=== PATIENT | male | born 1985 | race Two or more races ===

== ENCOUNTER 2022-03-18 07:37 | Inpatient (IN) | payer MEDICAID, OTHER ==
[~2022-03-18] VITALS: Ht 188 cm; Wt 109.5 kg
[2022-03-18] MEDS ORDERED: ACETAMINOPHEN 500 MG TAB PO ONE (08:00)
[2022-03-18 11:40] LABS: Calcium 8.9 mg/dL (8.5-10.1); Potassium 3.4 mmol/L (3.5-5.1)
[2022-03-18 11:44] LABS: BUN/Creatinine Ratio 12.9; Bilirubin, Total 2.1 mg/dL (0.2-1.0); Total Protein 8.6 g/dL (6.4-8.2)
[2022-03-18 11:45] LABS: Eosinophils # (auto) 0 10 ^3/uL (0-0.8); Hemoglobin 16.7 g/dL (13.5-17.5)
[2022-03-18 11:47] LABS: Urine Bacteria FEW /hpf (None Seen); Urine Blood Negative /uL (Negative); Urine Mucus FEW (None Seen); Urine WBC 1 /hpf (0 - 3)
[2022-03-18 11:49] LABS: Basophils # (auto) 0.1 10 ^3/uL (0-0.2); Basophils % (auto) 0.5 % (0.0-2.0); Hematocrit 49.8 % (41.0-53.0); Lymphocytes # (auto) 0.7 10 ^3/uL (0.4-5.4); Lymphocytes % (auto) 5.7 % (10.0-50.0); Mean Corpuscular Hemoglobin 27.8 pg (28.0-32.0); Mean Corpuscular Hgb Conc. 33.6 g/dL (32.0-36.0); Mean Corpuscular Volume 82.7 fL (80.0-100.0); Monocytes # (auto) 0.5 10 ^3/uL (0-1.3); Monocytes % (auto) 3.9 % (0.0-12.0); Neutrophils # (auto) 11.4 10 ^3/uL (1.6-8.6); Neutrophils % (auto) 89.9 % (37.0-80.0); Nucleated Red Blood Cells % 0.2 %; Red Blood Cells 6.02 10^6/uL (4.5-5.90); Red Cell Distribution Width 13.1 % (11.8-14.3); White Blood Cell 12.6 10^3/uL (4.4-10.8)
[2022-03-18] MEDS ORDERED: ONDANSETRON HCL 4 MG/2 ML VIAL IV ONE (12:15)
[2022-03-18] MEDS ORDERED: SODIUM CHLORIDE 0.9% 2,000 ML IV ONE (12:15)
[2022-03-18] MEDS ORDERED: PIPERACILLIN-TAZO 4.5GM 100 ML IV ONE (12:15)
[2022-03-18] MEDS ORDERED: MORPHINE SULFATE INJ 2 MG/ml SYRG IV ONE (12:45)
[2022-03-18] MEDS ORDERED: DEXTROSE (50%) 50ML SYRG IV PRN (15:30)
[2022-03-18] MEDS ORDERED: DOCUSATE SOD 100 MG CAP PO PRN (15:30)
[2022-03-18] MEDS: SODIUM CHLORIDE 0.9% 1,000 ML IV SCH (15:30)
[2022-03-18 17:59] VITALS: BP 123/77
[2022-03-18] MEDS: ONDANSETRON HCL 4 MG/2 ML VIAL IV PRN (18:00)
[2022-03-18] MEDS: HYDROcodone-ACET 5/325MG TAB PO PRN ×2 (18:05→22:05)
[2022-03-18 18:07] VITALS: BP 123/77
[2022-03-18] MEDS: InsuLIN REG 1unit/0.01ml Soln (100units/ml) SC SCH (18:37)
[2022-03-18] MEDS: ACCU-CHEK COMFORT CURVE STRIP VI SCH (18:38)
[2022-03-18] MEDS ORDERED: METF500S PO (19:07)
[2022-03-18 20:00] VITALS: BP 112/70
[2022-03-18 22:00] VITALS: BP 114/62
[2022-03-19] VITALS (7 sets, daily range): BP systolic 106–123; BP diastolic 57–76
[2022-03-19] MEDS: ACCU-CHEK COMFORT CURVE STRIP VI SCH ×4 (00:33→18:35)
[2022-03-19] MEDS: InsuLIN REG 1unit/0.01ml Soln (100units/ml) SC SCH ×4 (00:36→18:38)
[2022-03-19] MEDS ORDERED: PIPERACILLIN-TAZOB 3.375GM 100 ML IV ONE (01:15)
[2022-03-19] MEDS: HYDROcodone-ACET 5/325MG TAB PO PRN ×4 (02:17→19:37)
[2022-03-19] MEDS ORDERED: PIPERACILLIN-TAZOB 3.375GM 100 ML IV SCH (07:00)
[2022-03-19 07:06] LABS: Potassium 3.8 mmol/L (3.5-5.1)
[2022-03-19 07:09] LABS: Basophils # (auto) 0 10 ^3/uL (0-0.2); Basophils % (auto) 0.2 % (0.0-2.0); Eosinophils # (auto) 0 10 ^3/uL (0-0.8); Hematocrit 43.4 % (41.0-53.0); Hemoglobin 15.2 g/dL (13.5-17.5); Lymphocytes # (auto) 0.4 10 ^3/uL (0.4-5.4); Lymphocytes % (auto) 5.9 % (10.0-50.0); Mean Corpuscular Hemoglobin 29.1 pg (28.0-32.0); Mean Corpuscular Hgb Conc. 35.1 g/dL (32.0-36.0); Mean Corpuscular Volume 82.9 fL (80.0-100.0); Monocytes # (auto) 0.3 10 ^3/uL (0-1.3); Monocytes % (auto) 4.4 % (0.0-12.0); Neutrophils # (auto) 6.4 10 ^3/uL (1.6-8.6); Neutrophils % (auto) 89.5 % (37.0-80.0); Red Blood Cells 5.24 10^6/uL (4.5-5.90); Red Cell Distribution Width 12.9 % (11.8-14.3); White Blood Cell 7.1 10^3/uL (4.4-10.8)
[2022-03-19 07:22] LABS: BUN/Creatinine Ratio 10.1; Bilirubin, Total 2.3 mg/dL (0.2-1.0); Calcium 8.3 mg/dL (8.5-10.1); Total Protein 7.3 g/dL (6.4-8.2)
[2022-03-19] MEDS: SODIUM CHLORIDE 0.9% 1,000 ML IV SCH ×2 (09:50→11:03)
[2022-03-19] MEDS: ONDANSETRON HCL 4 MG/2 ML VIAL IV PRN (09:57)
[2022-03-19] MEDS ORDERED: ENOXAPARIN SOD 40 MG/0.4 ML SYRINGE SC SCH (10:00)
[2022-03-19] MEDS ORDERED: LORazepam 2MG/ML-1ML VIAL IV ONE (10:45)
[2022-03-19] MEDS ORDERED: GADOTERATE MEG 10 MMOL/20ml INJ (0.5MMOL/ml) IV ONE ×2 (11:01→11:37)
[2022-03-19] MEDS: MORPHINE SULFATE INJ 2 MG/ml SYRG IV PRN ×2 (11:23→20:23)
[2022-03-19 11:32] LABS: INR 1.27 (0.9-1.15); Partial Thromboplastin Time 33.7 sec (23.6-33.0)
[2022-03-19] MEDS ORDERED: LIDOCAINE 2%HCL (LOCAL ANESTH.) INJ 10ml MDV ONE (13:24)
[2022-03-19] MEDS: PIPERACILLIN-TAZOB 3.375GM 100 ML IV SCH (18:57)
[2022-03-20] MEDS: ACCU-CHEK COMFORT CURVE STRIP VI SCH ×4 (00:39→17:30)
[2022-03-20] MEDS: InsuLIN REG 1unit/0.01ml Soln (100units/ml) SC SCH ×5 (00:48→23:05)
[2022-03-20] MEDS: MORPHINE SULFATE INJ 2 MG/ml SYRG IV PRN ×4 (00:55→20:28)
[2022-03-20] MEDS: PIPERACILLIN-TAZOB 3.375GM 100 ML IV SCH ×4 (01:11→21:32)
[2022-03-20 05:00] VITALS: BP 103/70
[2022-03-20] MEDS: SODIUM CHLORIDE 0.9% 1,000 ML IV SCH ×3 (05:18→16:36)
[2022-03-20 05:38] LABS: Basophils # (auto) 0 10 ^3/uL (0-0.2); Basophils % (auto) 0.1 % (0.0-2.0); Eosinophils # (auto) 0 10 ^3/uL (0-0.8); Eosinophils % (auto) 0.4 % (0.0-7.0); Hematocrit 43.9 % (41.0-53.0); Hemoglobin 15.1 g/dL (13.5-17.5); Lymphocytes # (auto) 0.9 10 ^3/uL (0.4-5.4); Lymphocytes % (auto) 14.8 % (10.0-50.0); Mean Corpuscular Hemoglobin 28.2 pg (28.0-32.0); Mean Corpuscular Hgb Conc. 34.5 g/dL (32.0-36.0); Mean Corpuscular Volume 81.7 fL (80.0-100.0); Monocytes # (auto) 0.5 10 ^3/uL (0-1.3); Monocytes % (auto) 8.5 % (0.0-12.0); Neutrophils # (auto) 4.6 10 ^3/uL (1.6-8.6); Neutrophils % (auto) 76.2 % (37.0-80.0); Nucleated Red Blood Cells % 0.2 %; Red Blood Cells 5.37 10^6/uL (4.5-5.90); Red Cell Distribution Width 13.2 % (11.8-14.3); White Blood Cell 6.1 10^3/uL (4.4-10.8)
[2022-03-20 05:56] LABS: INR 0.99 (0.9-1.15); Partial Thromboplastin Time 33.7 sec (24.6-33.4)
[2022-03-20 05:57] LABS: Albumin 2.8 g/dL (3.4-5.0); BUN/Creatinine Ratio 16.2; Calcium 8.6 mg/dL (8.5-10.1); Potassium 3.4 mmol/L (3.5-5.1)
[2022-03-20 05:59] LABS: Bilirubin, Total 1.1 mg/dL (0.2-1.0); Total Protein 7.2 g/dL (6.4-8.2)
[2022-03-20 08:23] VITALS: BP 103/57
[2022-03-20 09:00] VITALS: BP 103/57
[2022-03-20 13:00] VITALS: BP 102/70
[2022-03-20] MEDS: HYDROcodone-ACET 5/325MG TAB PO PRN (14:41)
[2022-03-20 16:34] VITALS: BP 112/70
[2022-03-20] MEDS: ACETAMINOPHEN 500 MG TAB PO PRN (17:27)
[2022-03-20 22:00] VITALS: BP 108/65
[2022-03-21] MEDS: ACCU-CHEK COMFORT CURVE STRIP VI SCH ×4 (00:08→18:38)
[2022-03-21] MEDS: MORPHINE SULFATE INJ 2 MG/ml SYRG IV PRN ×2 (00:28→22:09)
[2022-03-21] MEDS: SODIUM CHLORIDE 0.9% 1,000 ML IV SCH ×3 (03:05→22:45)
[2022-03-21 05:00] VITALS: BP 106/65
[2022-03-21] MEDS: InsuLIN REG 1unit/0.01ml Soln (100units/ml) SC SCH ×4 (05:31→23:51)
[2022-03-21] MEDS: PIPERACILLIN-TAZOB 3.375GM 100 ML IV SCH ×3 (05:31→22:07)
[2022-03-21 07:45] LABS: Hematocrit 41.3 % (41.0-53.0); Hemoglobin 13.9 g/dL (13.5-17.5); Mean Corpuscular Hemoglobin 27.7 pg (28.0-32.0); Mean Corpuscular Hgb Conc. 33.7 g/dL (32.0-36.0); Mean Corpuscular Volume 82.3 fL (80.0-100.0); Red Blood Cells 5.02 10^6/uL (4.5-5.90); Red Cell Distribution Width 13.2 % (11.8-14.3); White Blood Cell 6.2 10^3/uL (4.4-10.8)
[2022-03-21 08:20] LABS: Basophils % (manual) 0 (0.0-2.0); Blast Cells 0; Eosinophils % (manual) 0 (0-7); Metamyelocytes % 0; Myelocytes % 0; Promyelocytes % 0; Reactive Lymphocytes 0
[2022-03-21 09:00] VITALS: BP 107/68
[2022-03-21 09:16] LABS: Band Neutrophils % (manual) 3; Lymphocytes % (manual) 25 (10.0-50.0); Monocytes % (manual) 6 (0-12)
[2022-03-21] MEDS: ACETAMINOPHEN 500 MG TAB PO PRN (11:06)
[2022-03-21] MEDS ORDERED: traMADol HCL 50 MG TAB PO PRN ×2 (11:45→14:45)
[2022-03-21 13:00] VITALS: BP 108/65
[2022-03-21 17:25] VITALS: BP 110/67
[2022-03-21 22:00] VITALS: BP 99/67
[2022-03-22] MEDS: MORPHINE SULFATE INJ 2 MG/ml SYRG IV PRN ×3 (02:05→21:23)
[2022-03-22 05:00] VITALS: BP 112/83
[2022-03-22] MEDS: PIPERACILLIN-TAZOB 3.375GM 100 ML IV SCH (05:27)
[2022-03-22] MEDS: ACCU-CHEK COMFORT CURVE STRIP VI SCH ×4 (05:27→17:50)
[2022-03-22] MEDS: InsuLIN REG 1unit/0.01ml Soln (100units/ml) SC SCH ×4 (05:27→23:30)
[2022-03-22 09:00] VITALS: BP 103/48
[2022-03-22] MEDS: SODIUM CHLORIDE 0.9% 1,000 ML IV SCH ×2 (10:04→11:31)
[2022-03-22 12:07] VITALS: BP 114/71
[2022-03-22] MEDS: metroNIDAZOLE 500 MG TAB PO SCH ×2 (14:17→21:22)
[2022-03-22 22:00] VITALS: BP 109/66
[2022-03-23] MEDS: ACCU-CHEK COMFORT CURVE STRIP VI SCH ×5 (00:44→23:12)
[2022-03-23] MEDS: SODIUM CHLORIDE 0.9% 1,000 ML IV SCH ×2 (00:44→13:10)
[2022-03-23 05:00] VITALS: BP 97/62
[2022-03-23 05:44] LABS: Basophils # (auto) 0 10 ^3/uL (0-0.2); Basophils % (auto) 0.3 % (0.0-2.0); Eosinophils # (auto) 0.1 10 ^3/uL (0-0.8); Eosinophils % (auto) 1.3 % (0.0-7.0); Hematocrit 40.5 % (41.0-53.0); Hemoglobin 13.7 g/dL (13.5-17.5); Lymphocytes # (auto) 1.6 10 ^3/uL (0.4-5.4); Lymphocytes % (auto) 19.2 % (10.0-50.0); Mean Corpuscular Hemoglobin 27.9 pg (28.0-32.0); Mean Corpuscular Hgb Conc. 33.8 g/dL (32.0-36.0); Mean Corpuscular Volume 82.5 fL (80.0-100.0); Monocytes # (auto) 1.3 10 ^3/uL (0-1.3); Monocytes % (auto) 15.1 % (0.0-12.0); Neutrophils # (auto) 5.4 10 ^3/uL (1.6-8.6); Neutrophils % (auto) 64.1 % (37.0-80.0); Red Blood Cells 4.91 10^6/uL (4.5-5.90); Red Cell Distribution Width 13.6 % (11.8-14.3); White Blood Cell 8.3 10^3/uL (4.4-10.8)
[2022-03-23] MEDS: metroNIDAZOLE 500 MG TAB PO SCH ×3 (05:44→22:00)
[2022-03-23] MEDS: InsuLIN REG 1unit/0.01ml Soln (100units/ml) SC SCH ×4 (05:47→23:14)
[2022-03-23 06:06] LABS: Potassium 3.3 mmol/L (3.5-5.1)
[2022-03-23 06:10] LABS: Albumin 2.7 g/dL (3.4-5.0); BUN/Creatinine Ratio 9.5; Calcium 8.9 mg/dL (8.5-10.1)
[2022-03-23 06:13] LABS: Bilirubin, Total 0.6 mg/dL (0.2-1.0); Total Protein 6.6 g/dL (6.4-8.2)
[2022-03-23 09:00] VITALS: BP 94/54
[2022-03-23] MEDS: levoFLOXacin 500MG 100 ML IV SCH (09:08)
[2022-03-23] MEDS ORDERED: POTASSIUM CHL 20 Meq TABLET PO ONE (10:30)
[2022-03-23] MEDS ORDERED: IOHEXOL 300 MG/ML 100ML BOTTLE IJ ONE (11:22)
[2022-03-23 13:00] VITALS: BP 107/68
[2022-03-23 17:07] VITALS: BP 113/72
[2022-03-23 22:00] VITALS: BP 113/59
[2022-03-23] MEDS: MORPHINE SULFATE INJ 2 MG/ml SYRG IV PRN (23:04)
[2022-03-24] MEDS: SODIUM CHLORIDE 0.9% 1,000 ML IV SCH (04:37)
[2022-03-24 05:10] VITALS: BP 95/55
[2022-03-24] MEDS: ACCU-CHEK COMFORT CURVE STRIP VI SCH (05:42)
[2022-03-24] MEDS: InsuLIN REG 1unit/0.01ml Soln (100units/ml) SC SCH (05:42)
[2022-03-24] MEDS: metroNIDAZOLE 500 MG TAB PO SCH (05:46)
[2022-03-24 06:56] LABS: Basophils # (auto) 0.1 10 ^3/uL (0-0.2); Basophils % (auto) 0.7 % (0.0-2.0); Eosinophils # (auto) 0.1 10 ^3/uL (0-0.8); Eosinophils % (auto) 1.9 % (0.0-7.0); Hematocrit 40.9 % (41.0-53.0); Lymphocytes # (auto) 1.7 10 ^3/uL (0.4-5.4); Lymphocytes % (auto) 23.8 % (10.0-50.0); Mean Corpuscular Hemoglobin 28.5 pg (28.0-32.0); Mean Corpuscular Hgb Conc. 34.2 g/dL (32.0-36.0); Mean Corpuscular Volume 83.4 fL (80.0-100.0); Monocytes # (auto) 0.8 10 ^3/uL (0-1.3); Monocytes % (auto) 11.7 % (0.0-12.0); Neutrophils # (auto) 4.3 10 ^3/uL (1.6-8.6); Neutrophils % (auto) 61.9 % (37.0-80.0); Nucleated Red Blood Cells % 0.2 %; Red Cell Distribution Width 13.3 % (11.8-14.3)
[2022-03-24 07:03] LABS: BUN/Creatinine Ratio 10.1; Calcium 8.7 mg/dL (8.5-10.1); Potassium 3.8 mmol/L (3.5-5.1)
[2022-03-24] MEDS: levoFLOXacin 500MG 100 ML IV SCH (08:45)
[2022-03-24 09:00] VITALS: BP 116/70
[2022-03-24] MEDS ORDERED: MET500T PO (10:06)
[2022-03-24] MEDS ORDERED: LEVO500T31 PO (10:06)
== END 2022-03-24 11:16 | disposition home or self-care (01) | DRG 720 ==
LOC: ER 07:37 → OVERFLOW 15:29 → CENTRAL 17:30
PROVIDERS: ADMIT Internal Medicine; ATTEND Internal Medicine
PROC: 0F903ZZ Drainage of Liver, Percutaneous Approach (ICD-10-PCS; principal; 2022-03-19)
DX: A41.59 Other Gram-negative sepsis (principal); K75.0 Abscess of liver; K72.90 Hepatic failure, unspecified without coma; E87.1 Hypo-osmolality and hyponatremia; E87.6 Hypokalemia; E66.9 Obesity, unspecified; Z20.822 Contact with and (suspected) exposure to COVID-19; E11.9 Type 2 diabetes mellitus without complications; K43.9 Ventral hernia without obstruction or gangrene; K57.30 Diverticulosis of large intestine without perforation or abscess without bleeding; B96.1 Klebsiella pneumoniae [K. pneumoniae] as the cause of diseases classified elsewhere; Z90.49 Acquired absence of other specified parts of digestive tract; Z68.30 Body mass index [BMI] 30.0-30.9, adult
CPT/HCPCS: 36415; 74176; 74177; 74183; 76705; 76942; 80048; 80053; 81001; 82962; 83036; 83605; 83690; 85007; 85025; 85027; 85610; 85730; 87040; 87077; 87186; 87205; 96361; 96365; 96375; G0378; J1815; J1956; J2001; J2405; J2543